=== PATIENT | female | born 2005 | race African-American/Black ===

== ENCOUNTER 2024-09-09 11:08 | Emergency (ER) | payer OTHER ==
[~2024-09-09] VITALS: Ht 162.6 cm; Wt 47.8 kg
[2024-09-09 11:22] VITALS: PULSE 94; RESP 16; TEMP 97.9
[2024-09-09 13:10] VITALS: BP 118/74; PULSE 76; RESP 16; O2SAT 99
== END 2024-09-09 13:07 | disposition home or self-care (01) ==
LOC: FSED 11:58
DX: R11.2 Nausea with vomiting, unspecified (principal); K52.9 Noninfective gastroenteritis and colitis, unspecified; E86.0 Dehydration; E86.1 Hypovolemia; Z11.52 Encounter for screening for COVID-19
CPT/HCPCS: 0223U; 87400; 99284